=== PATIENT | male | born 1970 | race Two or more races ===

== ENCOUNTER 2022-06-18 12:56 | Emergency (ER) | payer MEDICAID ==
[~2022-06-18] VITALS: Ht 185.4 cm; Wt 106.6 kg
[2022-06-18 13:00] VITALS: BP_SYST 119
--- NOTE | 2022-06-18 13:05 | NUR ---
Placed in room 05 . Placed on monitoring specialist, blood pressure machine and pulse oximeter. To gown for exam. Side rails up. Report given to TAYLA MCGUIRE.
--- NOTE | 2022-06-18 13:10 | NUR ---
at bedside assessing pt. pt calm and lethargic, but answering dr questions
[2022-06-18] MEDS ORDERED: DEXTROSE 50% JECT 50 ML DISP.SYRIN ONE (13:15)
[2022-06-18] MEDS ORDERED: DEXTROSE 50% JECT 50 ML DISP.SYRIN IVP ONE (13:30)
--- NOTE | 2022-06-18 14:14 | NUR ---
SISTER MEEHAN CALLED FOR UPDATE. OBTAINED PATIENT CONSENT TO TALK TO SISTER LETTING HER KNOW PATIENT IS RECEIVING FLUID AND FOOD AND SHOULD BE DISCHARGED ONCE SUGAR LEVELS COME BACK UP. SISTER STATED SHE IS ON THE WAY TO HOSPITAL, ETA 1:50 HOURS.
[2022-06-18 14:18] LABS: BASOPHILS % (AUTO) 0.6 % (0.0-2.0); EOSINOPHILS # (AUTO) 0.7 K/uL (0.0-0.4); EOSINOPHILS % (AUTO) 9.6 % (0.0-4.0); HEMATOCRIT 38.2 % (36-54); HEMOGLOBIN 13.6 g/dL (14.0-18.0); LYMPHOCYTES # (AUTO) 1.3 K/uL (1.0-5.5); LYMPHOCYTES % (AUTO) 18.2 % (20.5-51.5); MEAN CORPUSCULAR HEMOGLOBIN 31 pg (27-31); MEAN CORPUSCULAR HGB CONC 36 % (32-36); MEAN CORPUSCULAR VOLUME 88 fL (79.0-98.0); MONOCYTES # (AUTO) 0.7 K/uL (0.0-1.0); MONOCYTES % (AUTO) 10.3 % (1.7-9.3); NEUTROPHILS # (AUTO) 4.4 K/uL (1.8-7.7); NEUTROPHILS % (AUTO) 61.3 % (40.0-70.0); PLATELET COUNT (AUTO) 211 K/uL (130-430); RED BLOOD CELL COUNT(AUTO) 4.33 MIL/uL (4.2-6.2); RED CELL DISTRIBUTION WIDTH 13.6 % (9.0-15.0); WHITE BLOOD COUNT (AUTO) 7.1 K/uL (4.8-10.8)
--- NOTE | 2022-06-18 14:28 | NUR ---
Pt BBA for being found on ground near [employer] and [employer] lethargic with blood sugar of 27, paramedics stated they gave d10 or d50 but didnt know which one they gave. Pt is alert and lethargic cool and diaphoretic but follows commands. Pt reports taking 30 units of laond acting and 20 units of regular insulin this morning following regualr protocol for pt. Pt blood sugar taken in the 40's and given oragne juice and D50 in new 20G to LAC. ordered d50 and a meal and check blood sugars before letting pt go. Pt ate meal well with requested orange juice and resting in bed more comfortably reporting less lethargy
[2022-06-18 14:38] LABS: CREATININE 1.99 mg/dL (0.55-1.30)
[2022-06-18 14:43] LABS: ALBUMIN 3.6 g/dL (3.4-4.8); TOTAL BILIRUBIN 0.5 mg/dL (0.0-1.0)
--- NOTE | 2022-06-18 15:01 | NUR ---
pt ambulated well to restroom to void. pt states feeling better, educated on diabetes compliance and safety and importance for managing blood sugars properly. Pt agrees and thanks staff for help today.
--- NOTE | 2022-06-18 15:53 | NUR ---
BS of 133 taken, Dr updated and educated pt on Dr decision to monitor for another hour to make sure BS doesnt go hypoglycemic from potentially too much long acting insulin in system. Pt agreed with Dr's plan and resting in bed with sister at bedside requesting to not have monitors on. Pt reports having blood monitoring device on lower abdomen that checks blood sugars q15 minutes, but patient forgot the other phone that monitors those alerts. Pt agrees to monitor bs better to prevent this from happening
--- NOTE | 2022-06-18 16:40 | NUR ---
Pt discharged, IV taken out, wrist band removed. Pt left stable and feeling good about visit, educated on medications and proper care going forward
--- NOTE | 2022-06-18 19:20 | NUR ---
Patient given written and verbal discharge instructions and verbalizes understanding. ER MD discussed with patient the results and treatment provided. Patient in stable condition. ID arm band removed. Opportunity for questions provided and answered. Medication side effect fact sheet provided.
[2022-06-18 19:21] VITALS: BP_SYST 119
== END 2022-06-18 19:21 | disposition home or self-care (01) ==
LOC: SED 12:56
DX: E11.649 Type 2 diabetes mellitus with hypoglycemia without coma (principal); E16.2 Hypoglycemia, unspecified; R94.4 Abnormal results of kidney function studies; I10 Essential (primary) hypertension; E78.5 Hyperlipidemia, unspecified; Z79.899 Other long term (current) drug therapy
CPT/HCPCS: 36415; 80053; 82962; 85025; 96374; 99283